=== PATIENT | male | born 1935 | race Caucasian/White ===

== ENCOUNTER 2017-05-26 08:59 | Observation (INO) ==
[2017-05-26] MEDS ORDERED: ONDANSETRON 4 MG/2 ML VIAL IV STA (09:48)
[2017-05-26 10:41] LABS: Basophils % 0.5 % (0.0-0.8); Eosinophils # 0.2 10*3/uL (0.0-0.87); Eosinophils % 2.3 % (0.00-10.9); Hematocrit 31.1 VOL% (42.0-52.0); Hemoglobin 10.5 GM/DL (14.0-18.0); Immature Granulocytes % 0.6 %; Immature Granulocytes Absolute 0.05 #; Lymphocytes # 2.5 10*3/uL (1.4-4.0); Lymphocytes % 31.3 % (21.2-54.2); Mean Corpuscular HGB Conc 33.8 GM/DL (32-36); Mean Corpuscular Hemoglobin 32 PG (27-34); Mean Corpuscular Volume 94.2 FL (87-102); Mean Platelet Volume 11.5 FL (9.6-12.0); Monocytes # 0.5 10*3/uL (0.11-0.8); Monocytes % 6.9 % (1.7-12.7); Neutrophils # 4.6 10*3/uL (1.4-7.4); Neutrophils % 58.4 % (38.7-73.9); Platelet Count 117 T/CUMM (130-400); Red Cell Distribution Width 14.3 % (9.3-17.3); White Blood Count 7.8 T/CUMM (4-12)
[2017-05-26] MEDS ORDERED: ONDANSETRON 4 MG/2 ML VIAL ONE (10:43)
[2017-05-26 10:58] LABS: Albumin 3.4 G/DL (3.4-5.0); Bilirubin,Total 0.6 MG/DL (0.2-1.0); Calcium 9.4 MG/DL (8.5-10.1); Osmolality,Calculated 301.3 MOS/KG (273-304); Potassium 4.4 MMOL/L (3.5-5.1); Total Protein 6.4 G/DL (6.4-8.3)
[2017-05-26] MEDS ORDERED: GLUCAGON 1 MG VIAL IM PRN (12:25)
[2017-05-26] MEDS ORDERED: DEXTROSE 50% 25 GM/50 ML VIAL IV PRN (12:25)
[2017-05-26 12:45] LABS: Barbiturates Screen,Urine Negative (Negative); Benzodiazepines Screen,Urine Negative (Negative); Cannabinoid Screen,Urine Negative (Negative); Opiate Screen,Urine Negative (Negative); Phencyclidine Screen,Urine Negative (Negative)
[2017-05-26 13:38] LABS: Apearance,Urine CLEAR (Clear); Bilirubin,Urine Negative (Negative); Blood, Urine Negative (Negative); Glucose,Urine (UA) >=500 mg/dL (Negative); Ketones,Urine Negative (Negative); Mucus,Urine Occasional /LPF (Occasional); Nitrite,Urine Negative (Negative); Protein,Urine >=500 MG/DL; RBC,Urine <1 /HPF (0-4); Urine Color Yellow (Yellow); Urine Urobilinogen < 2.0 EU/DL (0.2-1.0)
[2017-05-26] MEDS ORDERED: ACETAMINOPHEN 325 MG TABLET PO PRN (15:17)
[2017-05-26] MEDS ORDERED: ONDANSETRON 4 MG/2 ML VIAL IV PRN (18:00)
[2017-05-26] MEDS ORDERED: metroNIDAZOLE 500 MG/100 ML PREMIX IV ONE (19:42)
[2017-05-26] MEDS: metroNIDAZOLE INJ 500 MG in PREMIX 1 EACH IV SCH ×2 (19:49→20:23)
[2017-05-26] MEDS ORDERED: INSULIN NPH/REGULAR 70/30 100 UNIT/ML SUBCUT SCH (21:00)
[2017-05-26] MEDS ORDERED: LACTULOSE 20 GM/30 ML UDCUP PO PRN (21:00)
[2017-05-26] MEDS ORDERED: DOCUSATE SODIUM 100 MG CAPSULE PO PRN (21:00)
[2017-05-26] MEDS ORDERED: ACETAMINOPHEN 325 MG TABLET ONE (21:04)
[2017-05-26] MEDS ORDERED: amLODIPine 5 MG TABLET ONE (21:05)
[2017-05-26] MEDS ORDERED: TAMSULOSIN 0.4 MG CAPSULE PO ONE (21:05)
[2017-05-26] MEDS ORDERED: INSULIN LISPRO 100 UNIT/ML ONE (21:13)
[2017-05-26] MEDS: CIPROFLOXACIN INJ 200 MG in PREMIX 1 EACH IV SCH (21:15)
[2017-05-26] MEDS: INSULIN LISPRO 100 UNIT/ML SUBCUT SCH ×2 (21:25→21:59)
[2017-05-26] MEDS: amLODIPine 5 MG TABLET PO SCH (21:26)
[2017-05-26] MEDS: TAMSULOSIN 0.4 MG CAPSULE PO SCH (21:26)
[2017-05-26] MEDS: ISOSORBIDE MONONITRATE 30 MG TABLET PO SCH (21:26)
[2017-05-26] MEDS: hydrALAZINE 10 MG TABLET PO SCH (21:26)
[2017-05-26] MEDS: SEVELAMER CARBONATE 800 MG TABLET PO SCH (21:27)
[2017-05-27] MEDS: hydrALAZINE 10 MG TABLET PO SCH ×4 (03:30→21:19)
[2017-05-27 03:49] LABS: Basophils % 0.5 % (0.0-0.8); Eosinophils # 0.1 10*3/uL (0.0-0.87); Eosinophils % 1.7 % (0.00-10.9); Hematocrit 32.4 VOL% (42.0-52.0); Hemoglobin 10.9 GM/DL (14.0-18.0); Immature Granulocytes % 0.7 %; Immature Granulocytes Absolute 0.05 #; Lymphocytes # 2.2 10*3/uL (1.4-4.0); Lymphocytes % 28.5 % (21.2-54.2); Mean Corpuscular HGB Conc 33.6 GM/DL (32-36); Mean Corpuscular Hemoglobin 32 PG (27-34); Mean Corpuscular Volume 94.5 FL (87-102); Mean Platelet Volume 12.2 FL (9.6-12.0); Monocytes # 0.7 10*3/uL (0.11-0.8); Neutrophils # 4.6 10*3/uL (1.4-7.4); Neutrophils % 59.6 % (38.7-73.9); Platelet Count 95 T/CUMM (130-400); Red Blood Count 3.43 MC/CUMM (3.8-5.5); Red Cell Distribution Width 14.5 % (9.3-17.3); White Blood Count 7.7 T/CUMM (4-12)
[2017-05-27 04:13] LABS: Calcium 8.9 MG/DL (8.5-10.1)
[2017-05-27 04:14] LABS: Potassium 4.5 MMOL/L (3.5-5.1); Thyroid Stimulating Hormone 2.4 uIU/ml (0.358-3.74)
[2017-05-27] MEDS ORDERED: metroNIDAZOLE 500 MG/100 ML PREMIX IV ONE (05:55)
[2017-05-27] MEDS: metroNIDAZOLE INJ 500 MG in PREMIX 1 EACH IV SCH ×4 (05:56→20:43)
[2017-05-27] MEDS ORDERED: amLODIPine 5 MG TABLET ONE (08:47)
[2017-05-27] MEDS ORDERED: PANTOPRAZOLE 40 MG TABLET PO ONE (08:47)
[2017-05-27] MEDS: amLODIPine 5 MG TABLET PO SCH ×2 (08:53→21:19)
[2017-05-27] MEDS: PANTOPRAZOLE 40 MG TABLET PO SCH (08:55)
[2017-05-27] MEDS: SEVELAMER CARBONATE 800 MG TABLET PO SCH ×3 (08:56→17:02)
[2017-05-27] MEDS: INSULIN LISPRO 100 UNIT/ML SUBCUT SCH ×4 (09:03→21:17)
[2017-05-27] MEDS: ASCORBIC ACID 500 MG TABLET PO SCH (09:50)
[2017-05-27] MEDS: CHOLECALCIFEROL 400 UNIT TABLET PO SCH (09:51)
[2017-05-27] MEDS: FOLIC ACID 0.4 MG TABLET PO SCH (09:51)
[2017-05-27] MEDS: DONEPEZIL 5 MG TABLET PO SCH (09:51)
[2017-05-27] MEDS: CIPROFLOXACIN INJ 200 MG in PREMIX 1 EACH IV SCH ×2 (09:52→22:00)
[2017-05-27] MEDS: PREGABALIN 50 MG CAPSULE PO SCH (11:53)
[2017-05-27] MEDS ORDERED: SEVELAMER CARBONATE 800 MG TABLET PO SCH (15:30)
[2017-05-27] MEDS: ISOSORBIDE MONONITRATE 30 MG TABLET PO SCH (21:19)
[2017-05-27] MEDS: TAMSULOSIN 0.4 MG CAPSULE PO SCH (21:19)
[2017-05-28] MEDS: hydrALAZINE 10 MG TABLET PO SCH ×2 (03:00→08:14)
[2017-05-28] MEDS: metroNIDAZOLE INJ 500 MG in PREMIX 1 EACH IV SCH ×2 (03:00→13:16)
[2017-05-28 06:57] LABS: Basophils % 0.4 % (0.0-0.8); Eosinophils # 0.2 10*3/uL (0.0-0.87); Eosinophils % 2.7 % (0.00-10.9); Hematocrit 31.4 VOL% (42.0-52.0); Hemoglobin 10.7 GM/DL (14.0-18.0); Immature Granulocytes % 0.4 %; Immature Granulocytes Absolute 0.03 #; Lymphocytes % 26.8 % (21.2-54.2); Mean Corpuscular HGB Conc 34.1 GM/DL (32-36); Mean Corpuscular Hemoglobin 32 PG (27-34); Mean Corpuscular Volume 93.5 FL (87-102); Mean Platelet Volume 11.8 FL (9.6-12.0); Monocytes # 0.7 10*3/uL (0.11-0.8); Monocytes % 8.7 % (1.7-12.7); Neutrophils # 4.6 10*3/uL (1.4-7.4); Platelet Count 111 T/CUMM (130-400); Red Blood Count 3.36 MC/CUMM (3.8-5.5); Red Cell Distribution Width 14.6 % (9.3-17.3); White Blood Count 7.5 T/CUMM (4-12)
[2017-05-28 07:31] LABS: Osmolality,Calculated 288.7 MOS/KG (273-304); Potassium 4.8 MMOL/L (3.5-5.1)
[2017-05-28] MEDS ORDERED: ZINC OXIDE PASTE 113 GM TUBE TOP PRN (07:58)
[2017-05-28] MEDS: INSULIN LISPRO 100 UNIT/ML SUBCUT SCH ×2 (08:13→13:15)
[2017-05-28] MEDS: SEVELAMER CARBONATE 800 MG TABLET PO SCH ×2 (08:13→13:16)
[2017-05-28] MEDS: CHOLECALCIFEROL 400 UNIT TABLET PO SCH (08:13)
[2017-05-28] MEDS: ASCORBIC ACID 500 MG TABLET PO SCH (08:14)
[2017-05-28] MEDS: DONEPEZIL 5 MG TABLET PO SCH (08:14)
[2017-05-28] MEDS: FOLIC ACID 0.4 MG TABLET PO SCH (08:14)
[2017-05-28] MEDS: amLODIPine 5 MG TABLET PO SCH (08:14)
[2017-05-28] MEDS: PREGABALIN 50 MG CAPSULE PO SCH (08:14)
[2017-05-28] MEDS: PANTOPRAZOLE 40 MG TABLET PO SCH (08:14)
[2017-05-28 10:48] LABS: Hepatitis A Ab IgM Quant 0.19 Index; Hepatitis A Ab IgM Result Negative (Negative); Hepatitis B Core IgM Quant 0.17 Index; Hepatitis B Core IgM Result Negative (Negative); Hepatitis B Surface Ag Quant < 0.10 Index; Hepatitis B Surface Ag Result Negative (Negative); Hepatitis C Virus Ab Quant 0.17 Index; Hepatitis C Virus Ab Result Negative (Negative)
[2017-05-28] MEDS: CIPROFLOXACIN INJ 200 MG in PREMIX 1 EACH IV SCH (11:54)
[2017-05-28 12:49] VITALS: BP 149/58
[2017-05-29] MEDS ORDERED: CYANOCOBALAMIN 1000 MCG/1 ML VIAL IM SCH (09:00)
== END 2017-05-28 14:39 | disposition home health service (06) ==
LOC: EDBD → EDUNIT# → N.EDINP 08:59 → N.ED 08:59 → SUATTDRO 11:38 → N.EDINP 05-27 11:02 → N.5E 05-27 11:07
PROVIDERS: ADMIT Internal Medicine; ATTEND Internal Medicine

== ENCOUNTER 2017-06-16 12:50 | Inpatient (IN) ==
[2017-06-16 15:02] LABS: Basophils % 0.4 % (0.0-0.8); Eosinophils # 0.2 10*3/uL (0.0-0.87); Eosinophils % 1.7 % (0.00-10.9); Hematocrit 32.8 VOL% (42.0-52.0); Hemoglobin 10.7 GM/DL (14.0-18.0); Immature Granulocytes % 0.7 %; Immature Granulocytes Absolute 0.07 #; Lymphocytes # 2.2 10*3/uL (1.4-4.0); Lymphocytes % 21.3 % (21.2-54.2); Mean Corpuscular HGB Conc 32.6 GM/DL (32-36); Mean Corpuscular Hemoglobin 32 PG (27-34); Mean Corpuscular Volume 97.3 FL (87-102); Mean Platelet Volume 11.4 FL (9.6-12.0); Monocytes # 0.8 10*3/uL (0.11-0.8); Monocytes % 7.6 % (1.7-12.7); NRBC # 0.03 10*3/uL; Neutrophils # 7.1 10*3/uL (1.4-7.4); Neutrophils % 68.3 % (38.7-73.9); Platelet Count 121 T/CUMM (130-400); Red Blood Count 3.37 MC/CUMM (3.8-5.5); Red Cell Distribution Width 14.8 % (9.3-17.3); White Blood Count 10.5 T/CUMM (4-12)
[2017-06-16 15:19] LABS: Albumin 3.1 G/DL (3.4-5.0); Bilirubin,Total 0.7 MG/DL (0.2-1.0); Osmolality,Calculated 276.8 MOS/KG (273-304); Potassium 4.3 MMOL/L (3.5-5.1); Total Protein 6.8 G/DL (6.4-8.3)
[2017-06-16] MEDS ORDERED: GLUCAGON 1 MG VIAL IM PRN (16:45)
[2017-06-16] MEDS ORDERED: DEXTROSE 50% 25 GM/50 ML VIAL IV PRN (16:45)
[2017-06-16] MEDS ORDERED: ONDANSETRON 4 MG/2 ML VIAL IV PRN (16:45)
[2017-06-16] MEDS ORDERED: ZINC OXIDE PASTE 113 GM TUBE TOP PRN (16:46)
[2017-06-16] MEDS ORDERED: SEVELAMER CARBONATE 800 MG TABLET PO SCH (17:00)
[2017-06-16] MEDS: hydrALAZINE 10 MG TABLET PO SCH (19:15)
[2017-06-16] MEDS: SEVELAMER CARBONATE 800 MG TABLET PO SCH (19:16)
[2017-06-16] MEDS: amLODIPine 5 MG TABLET PO SCH (21:52)
[2017-06-16] MEDS: TAMSULOSIN 0.4 MG CAPSULE PO SCH (21:52)
[2017-06-16] MEDS: ENOXAPARIN 30 MG/0.3 ML SYRINGE SUBCUT SCH (21:52)
[2017-06-16] MEDS: INSULIN REGULAR 100 UNIT/ML SUBCUT SCH (21:52)
[2017-06-17] MEDS: hydrALAZINE 10 MG TABLET PO SCH ×4 (00:10→17:48)
[2017-06-17 06:29] LABS: Basophils % 0.4 % (0.0-0.8); Eosinophils # 0.2 10*3/uL (0.0-0.87); Eosinophils % 2.8 % (0.00-10.9); Hematocrit 30.8 VOL% (42.0-52.0); Hemoglobin 10.4 GM/DL (14.0-18.0); Immature Granulocytes % 0.7 %; Immature Granulocytes Absolute 0.05 #; Lymphocytes # 2.2 10*3/uL (1.4-4.0); Mean Corpuscular HGB Conc 33.8 GM/DL (32-36); Mean Corpuscular Hemoglobin 32 PG (27-34); Mean Corpuscular Volume 94.5 FL (87-102); Mean Platelet Volume 11.8 FL (9.6-12.0); Monocytes # 0.7 10*3/uL (0.11-0.8); Monocytes % 10.2 % (1.7-12.7); NRBC # 0.02 10*3/uL; Neutrophils # 4.1 10*3/uL (1.4-7.4); Neutrophils % 55.9 % (38.7-73.9); Platelet Count 130 T/CUMM (130-400); Red Blood Count 3.26 MC/CUMM (3.8-5.5); Red Cell Distribution Width 15.1 % (9.3-17.3); White Blood Count 7.3 T/CUMM (4-12)
[2017-06-17 07:12] LABS: Albumin 2.9 G/DL (3.4-5.0); Bilirubin,Total 0.9 MG/DL (0.2-1.0); Calcium 8.9 MG/DL (8.5-10.1); Osmolality,Calculated 284.3 MOS/KG (273-304); Potassium 4.2 MMOL/L (3.5-5.1); Total Protein 5.8 G/DL (6.4-8.3)
[2017-06-17 07:14] LABS: Apearance,Urine CLEAR (Clear); Bilirubin,Urine Negative (Negative); Blood, Urine Negative (Negative); Glucose,Urine (UA) 50 mg/dL (Negative); Ketones,Urine Negative (Negative); Nitrite,Urine Negative (Negative); Protein,Urine 100 MG/DL; RBC,Urine <1 /HPF (0-4); Urine Color Straw (Yellow); Urine Specific Gravity 1.004 (1.001-1.035); Urine Urobilinogen < 2.0 EU/DL (0.2-1.0); WBC,Urine <1 /HPF (0-6)
[2017-06-17] MEDS ORDERED: DONEPEZIL 5 MG TABLET PO SCH (09:00)
[2017-06-17] MEDS ORDERED: PREGABALIN 50 MG CAPSULE PO SCH (09:00)
[2017-06-17] MEDS: SEVELAMER CARBONATE 800 MG TABLET PO SCH ×3 (09:07→17:48)
[2017-06-17] MEDS: FOLIC ACID 0.4 MG TABLET PO SCH (09:08)
[2017-06-17] MEDS: CHOLECALCIFEROL 400 UNIT TABLET PO SCH (09:08)
[2017-06-17] MEDS: amLODIPine 5 MG TABLET PO SCH ×2 (09:09→21:41)
[2017-06-17] MEDS: FINASTERIDE 5 MG TABLET PO SCH (09:09)
[2017-06-17] MEDS: ISOSORBIDE MONONITRATE 60 MG TABLET PO SCH (09:09)
[2017-06-17] MEDS: ACETAMINOPHEN 325 MG TABLET PO SCH (09:09)
[2017-06-17] MEDS: ASCORBIC ACID 500 MG TABLET PO SCH (09:09)
[2017-06-17] MEDS: INSULIN REGULAR 100 UNIT/ML SUBCUT SCH ×4 (09:12→21:40)
[2017-06-17] MEDS ORDERED: guaiFENesin 200 MG/10 ML UDCUP PO PRN (19:58)
[2017-06-17] MEDS ORDERED: LIDOCAINE/PRILOCAINE CREAM 5 GM TUBE TOP ONE (20:04)
[2017-06-17] MEDS: ENOXAPARIN 30 MG/0.3 ML SYRINGE SUBCUT SCH (21:40)
[2017-06-17] MEDS: TAMSULOSIN 0.4 MG CAPSULE PO SCH (21:40)
[2017-06-18] MEDS: hydrALAZINE 10 MG TABLET PO SCH ×3 (00:12→14:11)
[2017-06-18] MEDS: hydrALAZINE 20 MG/1 ML VIAL IV PRN ×2 (02:09→04:35)
[2017-06-18] MEDS ORDERED: LIDOCAINE/PRILOCAINE CREAM 5 GM TUBE TOP SCH (07:00)
[2017-06-18] MEDS: SEVELAMER CARBONATE 800 MG TABLET PO SCH ×3 (08:50→16:29)
[2017-06-18] MEDS: CHOLECALCIFEROL 400 UNIT TABLET PO SCH (08:51)
[2017-06-18] MEDS: ACETAMINOPHEN 325 MG TABLET PO SCH (08:51)
[2017-06-18] MEDS: amLODIPine 5 MG TABLET PO SCH ×2 (08:52→20:32)
[2017-06-18] MEDS: FOLIC ACID 0.4 MG TABLET PO SCH (08:52)
[2017-06-18] MEDS: FINASTERIDE 5 MG TABLET PO SCH (08:52)
[2017-06-18] MEDS: ISOSORBIDE MONONITRATE 60 MG TABLET PO SCH (08:52)
[2017-06-18] MEDS: ASCORBIC ACID 500 MG TABLET PO SCH (08:54)
[2017-06-18] MEDS: INSULIN REGULAR 100 UNIT/ML SUBCUT SCH ×4 (08:54→21:32)
[2017-06-18] MEDS ORDERED: TUBERCULIN SKIN TEST 0.1 ML SYRINGE INTRADERM ONE (15:00)
[2017-06-18] MEDS: hydrALAZINE 25 MG TABLET PO SCH (20:33)
[2017-06-18] MEDS: ENOXAPARIN 30 MG/0.3 ML SYRINGE SUBCUT SCH (20:33)
[2017-06-18] MEDS: TAMSULOSIN 0.4 MG CAPSULE PO SCH (20:33)
[2017-06-19] MEDS: INSULIN REGULAR 100 UNIT/ML SUBCUT SCH ×4 (09:09→21:36)
[2017-06-19] MEDS: SEVELAMER CARBONATE 800 MG TABLET PO SCH ×3 (09:09→17:10)
[2017-06-19] MEDS: ACETAMINOPHEN 325 MG TABLET PO SCH (09:09)
[2017-06-19] MEDS: FINASTERIDE 5 MG TABLET PO SCH (09:10)
[2017-06-19] MEDS: FOLIC ACID 0.4 MG TABLET PO SCH (09:10)
[2017-06-19] MEDS: CHOLECALCIFEROL 400 UNIT TABLET PO SCH (09:10)
[2017-06-19] MEDS: ISOSORBIDE MONONITRATE 60 MG TABLET PO SCH (09:10)
[2017-06-19] MEDS: amLODIPine 5 MG TABLET PO SCH ×2 (09:10→21:36)
[2017-06-19] MEDS: hydrALAZINE 25 MG TABLET PO SCH ×3 (09:10→21:36)
[2017-06-19] MEDS: ASCORBIC ACID 500 MG TABLET PO SCH (09:10)
[2017-06-19] MEDS: TAMSULOSIN 0.4 MG CAPSULE PO SCH (21:36)
[2017-06-19] MEDS: ENOXAPARIN 30 MG/0.3 ML SYRINGE SUBCUT SCH (21:36)
[2017-06-20] MEDS: hydrALAZINE 25 MG TABLET PO SCH (07:15)
[2017-06-20] MEDS: amLODIPine 5 MG TABLET PO SCH (07:15)
[2017-06-20] MEDS: FINASTERIDE 5 MG TABLET PO SCH (07:15)
[2017-06-20] MEDS: INSULIN REGULAR 100 UNIT/ML SUBCUT SCH ×2 (07:15→13:20)
[2017-06-20] MEDS: ISOSORBIDE MONONITRATE 60 MG TABLET PO SCH (07:15)
[2017-06-20] MEDS: FOLIC ACID 0.4 MG TABLET PO SCH (07:15)
[2017-06-20] MEDS: ASCORBIC ACID 500 MG TABLET PO SCH (07:15)
[2017-06-20] MEDS: CHOLECALCIFEROL 400 UNIT TABLET PO SCH (07:15)
[2017-06-20] MEDS: SEVELAMER CARBONATE 800 MG TABLET PO SCH ×2 (07:15→13:20)
[2017-06-20] MEDS: ACETAMINOPHEN 325 MG TABLET PO SCH (07:15)
[2017-06-20 11:41] VITALS: BP 135/56
[2017-07-09] MEDS ORDERED: CYANOCOBALAMIN 1000 MCG/1 ML VIAL IM SCH (09:00)
== END 2017-06-20 13:26 | DRG 70 ==
LOC: EDBD → EDUNIT# → N.ED 12:50 → SUATTDRO 15:31 → N.EDINP 15:31 → N.5E 18:02
PROVIDERS: ADMIT Emergency Medicine; ATTEND Family Medicine